=== PATIENT | male | born 1955 | race Two or more races ===

== ENCOUNTER 2017-05-07 13:34 | Emergency (ER) | payer MEDICAID ==
[~2017-05-07] VITALS: Ht 167.6 cm; Wt 86.2 kg
[2017-05-07 13:58] VITALS: BP 130/80
== END 2017-05-07 14:16 | disposition left against medical advice (07) ==
LOC: ER 13:34
DX: M25.531 Pain in right wrist (principal); Z53.21 Procedure and treatment not carried out due to patient leaving prior to being seen by health care provider

== ENCOUNTER 2018-02-04 01:28 | Emergency (ER) | payer MEDICAID ==
[~2018-02-04] VITALS: Ht 167.6 cm; Wt 74.8 kg
[2018-02-04] MEDS ORDERED: cloNIDine HCL 0.1 MG TAB PO ONE (02:15)
[2018-02-04 02:55] LABS: Albumin 4.1 g/dL (3.4-5.0); Anion Gap 9 (5-15); Aspartate Aminotransferase 16 U/L (15-37); BUN/Creatinine Ratio 12.2; Blood Urea Nitrogen 16 mg/dL (7-18); Calcium 8.7 mg/dL (8.5-10.1); Carbon Dioxide 24 mmol/L (21-32); Chloride 105 mmol/L (98-107); GFR African American 72 mL/min; GFR Non-African American 59 mL/min; Glucose 97 mg/dL (74-106); Magnesium 2.4 mg/dL (1.6-2.6); Potassium 4.3 mmol/L (3.5-5.1); Sodium 138 mmol/L (136-145)
[2018-02-04 02:56] LABS: Basophils # (auto) 0.1 uL; Basophils % (auto) 0.8 % (0.0-2.0); Eosinophils # (auto) 0.1 uL; Hematocrit 42.5 % (41.0-53.0); Hemoglobin 14.5 g/dL (13.5-17.5); Lymphocytes # (auto) 2.9 uL; Lymphocytes % (auto) 40.1 % (10.0-50.0); Mean Corpuscular Hemoglobin 30.8 pg (28.0-32.0); Mean Corpuscular Hgb Conc. 34.2 g/dL (32.0-36.0); Mean Corpuscular Volume 90.2 fL (80.0-100.0); Monocytes # (auto) 0.5 uL; Monocytes % (auto) 6.6 % (0.0-12.0); Neutrophils # (auto) 3.6 uL; Neutrophils % (auto) 50.5 % (37.0-80.0); Nucleated Red Blood Cells % 0.1 %; Platelet Count (auto) 292 10^3/uL (140-450); Red Blood Cells 4.71 10^6/uL (4.5-5.90); Red Cell Distribution Width 14.2 % (11.8-14.3); White Blood Cell 7.1 10^3/uL (4.4-10.8)
[2018-02-04 03:00] LABS: Alanine Aminotransferase 25 U/L (16-61); Alkaline Phosphatase 80 U/L (45-117); Bilirubin, Total 0.6 mg/dL (0.2-1.0); Total Protein 7.8 g/dL (6.4-8.2)
[2018-02-04] MEDS ORDERED: KETOROLAC TROMETH 30 MG/ML 1ML VIAL IV ONE (08:30)
[2018-02-04 10:15] VITALS: BP 124/87
== END 2018-02-04 10:18 | disposition home or self-care (01) ==
LOC: ER 01:34
DX: I10 Essential (primary) hypertension (principal); R42 Dizziness and giddiness; R51 Headache; Z90.49 Acquired absence of other specified parts of digestive tract
CPT/HCPCS: 36415; 70450; 71045; 80053; 83735; 84484; 85025; 93005; 96374; 99285; J1885